=== PATIENT | female | born 1930 | race Caucasian/White ===

== ENCOUNTER 2016-10-28 16:52 | Emergency (ER) | payer OTHER ==
[~2016-10-28 16:52] MED LIST: APIX2.5 PO; ATOR10 PO; CART240C4 PO; GLUCTAB OR; LEVO.025 PO; LOSA25TA31 PO; POTA20PA PO; TYLE500T PO
[2016-10-28 17:20] VITALS: BP 214/96; PULSE 101; RESP 16; TEMP 98.2; O2SAT 97
--- NOTE | 2016-10-28 17:53 | PD ---
HPI Chief Complaint: Altered Mental Status Time Seen by Provider: 17:47 Travel History International Travel<30 days: No Contact w/Intl Traveler<30days: No History of Present Illness HPI Send 86 year-old woman, lives in apparently independent living, is always pleasantly confused, was found on the ground by her daughter. She may have been there since last night. History Past Medical History Narrative Medical Hypertension Diabetes A. fib Dyslipidemia GERD PNEUMOCCOCAL Vaccine (Year): 2009 Social History Alcohol Use: No Tobacco Use: No Allergies-Medications (Allergen,Severity, Reaction): Coded Allergies: morphine (Unverified Allergy, Severe, 09/30/16) SOB, SWELLING penicillin G (Unverified Allergy, Severe, 09/30/16) NAUSEA/VOMITING Reported Meds & Prescriptions Reported Meds & Active Scripts Active Cozaar (Losartan Potassium) 25 Mg Tab 25 Mg PO DAILY 30 Days Lipitor 10 mg tab (Atorvastatin) 10 Mg Tab 10 Mg PO HS 30 Days Eliquis (Apixaban) 2.5 Mg Tab 2.5 Mg PO BID Reported Levothyroxine 25 mcg (Levothyroxine Sodium) 25 Mcg Tab 25 Mcg PO DAILY Cartia XT 240 mg (DILTIAZEM XT 240 mg (Cartia)) 240 Mg/24 Hr Cap 240 Mg PO DAILY Tylenol (Acetaminophen) 500 Mg Tab 1,000 Mg PO Q6HPRN Klor-Con (Potassium Chloride) 20 Meq Pow 20 Meq PO DAILY Metformin Hcl (Metformin HCl) 500 Mg Tab 500 Mg OR DAILY Review of Systems Except as stated in HPI: all other systems reviewed are Neg Physical Exam Narrative GENERAL: 86 year-old woman, nontoxic, pleasantly confused. SKIN: Focused skin assessment warm/dry. HEAD: Atraumatic. Normocephalic. EYES: Pupils equal and round. No scleral icterus. No injection or drainage. ENT: No nasal bleeding or discharge. Mucous membranes pink and moist. NECK: Trachea midline. No JVD. CARDIOVASCULAR: Regular rate and rhythm. No murmur appreciated. RESPIRATORY: No accessory muscle use. Clear to auscultation. Breath sounds equal bilaterally. GASTROINTESTINAL: Abdomen soft, non-tender, nondistended. Hepatic and splenic margins not palpable. MUSCULOSKELETAL: No obvious deformities. No clubbing. No cyanosis. No edema. She's got very slight bruising on her left hand. There is no tenderness at all. No evidence of bony injury. NEUROLOGICAL: Awake and alert. Pleasantly confused. No obvious cranial nerve deficits. Motor grossly within normal limits. Normal speech. Data Data Last Documented VS Vital Signs Date Time Temp Pulse Resp B/P (MAP) Pulse Ox O2 Delivery O2 Flow Rate FiO2 10/28/16 17:20 98.2 101 16 214/96 (135) 97 Orders Orders Complete Blood Count With Diff (10/28/16 17:47) Comprehensive Metabolic Panel (10/28/16 17:47) Urinalysis - C+S If Indicated (10/28/16 17:47) Creatine Kinase (Cpk) (10/28/16 17:53) Ct Brain W/O Iv Contrast(Rout) (10/28/16 ) Labs Laboratory Tests Test 10/28/16 18:03 White Blood Count 10.5 TH/MM3 Red Blood Count 4.15 MIL/MM3 Hemoglobin 12.1 GM/DL Hematocrit 35.6 % Mean Corpuscular Volume 85.9 FL Mean Corpuscular Hemoglobin 29.1 PG Mean Corpuscular Hemoglobin Concent 33.9 % Red Cell Distribution Width 15.6 % Platelet Count 246 TH/MM3 Mean Platelet Volume 9.6 FL Neutrophils (%) (Auto) 79.7 % Lymphocytes (%) (Auto) 14.0 % Monocytes (%) (Auto) 5.0 % Eosinophils (%) (Auto) 0.7 % Basophils (%) (Auto) 0.6 % Neutrophils # (Auto) 8.4 TH/MM3 Lymphocytes # (Auto) 1.5 TH/MM3 Monocytes # (Auto) 0.5 TH/MM3 Eosinophils # (Auto) 0.1 TH/MM3 Basophils # (Auto) 0.1 TH/MM3 CBC Comment DIFF FINAL Differential Comment MDM Medical Decision Making Medical Screen Exam Complete: Yes Emergency Medical Condition: Yes Differential Diagnosis UTI, fall, confusion, other Narrative Course Medical decision making INITIAL: 86-year-old with a fall, confusion. Appears to be at baseline. We'll check urine, CT head. Probable UTI. Likely discharge. 6:05 PM: Attempted to call patient's next of kin, Jane Moon, . I left a message. Patient seen in the ambulance hallway. Patient be transferred to a medical bed for repeat evaluation and disposition. Roddy Yeh MD Oct 28, 2016 17:53
[2016-10-28 18:33] LABS: AUTOMATED NEUTROPHIL # 8.4 TH/MM3 (1.8-7.7); BASOPHIL # 0.1 TH/MM3 (0-0.2); BASOPHIL % 0.6 % (0.0-2.0); EOSINOPHIL # 0.1 TH/MM3 (0-0.4); EOSINOPHIL % 0.7 % (0.0-4.0); HEMATOCRIT 35.6 % (35.0-46.0); HEMO FLAGS DIFF FINAL; LYMPHOCYTE # 1.5 TH/MM3 (1.0-4.8); MEAN CELL VOLUME 85.9 FL (80.0-100.0); MEAN CORPUSCULAR HEMOGLOBIN 29.1 PG (27.0-34.0); MEAN CORPUSCULAR HGB CONC 33.9 % (32.0-36.0); NEUT % 79.7 % (16.0-70.0); PLATELET COUNT 246 TH/MM3 (150-450); RED BLOOD COUNT 4.15 MIL/MM3 (4.00-5.30); RED CELL DISTRIBUTION WIDTH 15.6 % (11.6-17.2); WHITE BLOOD COUNT 10.5 TH/MM3 (4.0-11.0)
[2016-10-28 19:04] LABS: ANION GAP 11 MEQ/L (5-15); AST (GOT) 21 U/L (15-37); BICARBONATE 24.4 MEQ/L (21.0-32.0); BLOOD UREA NITROGEN 24 MG/DL (7-18); CHLORIDE 106 MEQ/L (98-107); GLOMERULAR FILTRATION RATE 69 ML/MIN (>89); POTASSIUM 3.4 MEQ/L (3.5-5.1); SODIUM (NA) 141 MEQ/L (136-145)
[2016-10-28 19:14] LABS: ALKALINE PHOSPHATASE 136 U/L (45-117); ALT (GPT) 19 U/L (10-53); CREATINE KINASE 122 U/L (26-192); TOTAL BILIRUBIN ADULT 0.4 MG/DL (0.2-1.0)
[2016-10-28 19:18] LABS: BACTERIA, URINE RARE /hpf; BLOOD, URINE SMALL (NEG); COMMENT (UR) CULT NOT INDICATED; CULTURE IF INDICATED CULT NOT INDICATED; GLUCOSE,URINE NEG (NEG); KETONE, URINE 10 mg/dL (NEG); MUCUS URINE FEW /lpf (OCC); NITRITE,URINE NEG (NEG); PH, URINE 7.5 (5.0-8.5); SQUAMOUS EPITHELIAL CELL URINE 1 /hpf (0-5); URINE COLOR LIGHT-YELLOW (YELLW/STRAW)
--- NOTE | 2016-10-28 19:30 | PD ---
Data Data Last Documented VS Vital Signs Date Time Temp Pulse Resp B/P (MAP) Pulse Ox O2 Delivery O2 Flow Rate FiO2 10/28/16 19:15 95 10/28/16 17:20 98.2 101 16 214/96 (135) Orders Orders Complete Blood Count With Diff (10/28/16 17:47) Comprehensive Metabolic Panel (10/28/16 17:47) Urinalysis - C+S If Indicated (10/28/16 17:47) Ct Brain W/O Iv Contrast(Rout) (10/28/16 ) Creatine Kinase (Cpk) (10/28/16 17:47) Nitrofurantoin Monohyd Macrocr (Macrobid (10/28/16 20:45) Labs Laboratory Tests Test 10/28/16 18:03 10/28/16 18:50 White Blood Count 10.5 TH/MM3 Red Blood Count 4.15 MIL/MM3 Hemoglobin 12.1 GM/DL Hematocrit 35.6 % Mean Corpuscular Volume 85.9 FL Mean Corpuscular Hemoglobin 29.1 PG Mean Corpuscular Hemoglobin Concent 33.9 % Red Cell Distribution Width 15.6 % Platelet Count 246 TH/MM3 Mean Platelet Volume 9.6 FL Neutrophils (%) (Auto) 79.7 % Lymphocytes (%) (Auto) 14.0 % Monocytes (%) (Auto) 5.0 % Eosinophils (%) (Auto) 0.7 % Basophils (%) (Auto) 0.6 % Neutrophils # (Auto) 8.4 TH/MM3 Lymphocytes # (Auto) 1.5 TH/MM3 Monocytes # (Auto) 0.5 TH/MM3 Eosinophils # (Auto) 0.1 TH/MM3 Basophils # (Auto) 0.1 TH/MM3 CBC Comment DIFF FINAL Differential Comment Blood Urea Nitrogen 24 MG/DL Creatinine 0.79 MG/DL Random Glucose 110 MG/DL Total Protein 7.0 GM/DL Albumin 3.5 GM/DL Calcium Level 8.2 MG/DL Alkaline Phosphatase 136 U/L Aspartate Amino Transf (AST/SGOT) 21 U/L Alanine Aminotransferase (ALT/SGPT) 19 U/L Total Bilirubin 0.4 MG/DL Sodium Level 141 MEQ/L Potassium Level 3.4 MEQ/L Chloride Level 106 MEQ/L Carbon Dioxide Level 24.4 MEQ/L Anion Gap 11 MEQ/L Estimat Glomerular Filtration Rate 69 ML/MIN Total Creatine Kinase 122 U/L Urine Color LIGHT-YELLOW Urine Turbidity HAZY Urine pH 7.5 Urine Specific [place] 1.012 Urine Protein 30 mg/dL Urine Glucose (UA) NEG mg/dL Urine Ketones 10 mg/dL Urine Occult Blood SMALL Urine Nitrite NEG Urine Bilirubin NEG Urine Urobilinogen LESS THAN 2.0 MG/DL Urine Leukocyte Esterase LARGE Urine RBC 10 /hpf Urine WBC 6 /hpf Urine Squamous Epithelial Cells 1 /hpf Urine Amorphous Sediment RARE Urine Bacteria RARE /hpf Urine Mucus FEW /lpf Microscopic Urinalysis Comment CULT NOT INDICATED MDM Medical Record Reviewed: Yes Supervised Visit with WILFREDO: No Interpretation(s) Last Impressions Head CT 10/28/16 0000 Signed Impressions: Service Date/Time: Friday, October 28, 2016 19:36 - CONCLUSION: No acute intracranial abnormality. 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 Solis Agarwal MD Narrative Course During the course of the patients emergency department visit, the patients history, examination, and differential diagnosis were reviewed with the patient. The patient had IV access obtained and blood work sent for analysis. The patient was placed on a panel monitor with oximetry and blood pressure monitoring. The patient's case was checked out to me by at the conclusion of his shift. He requested that I review the patient's CT scan of the brain. He anticipated that the patient would be able to be discharged back home. According to the patient's family at the patient's bedside the patient has a history of dementia and lives in an apartment alone. The patient also has a history of chronic urinary incontinence. They report that the patient has refused placement and any type of skilled facility. They report that she has difficulty remembering to take her medications regularly. According to them , she has not taken her medications at all today. The patients laboratory studies were reviewed and remarkable for a white count of 10.5, hemoglobin 12.1, platelets 246 with 79.7 neutrophils, CMP is remarkable for potassium of 3.4, BUN 24, glucose 110, calcium 8.2, alkaline phosphatase 136, urinalysis shows hazy urine, protein 30, 10 ketones, small occult blood, large leukocyte esterase, 10 rbc's, 6 wbc's, rare bacteria. Radiology studies were reviewed and remarkable for a CT scan of the brain shows no acute intracranial abnormality, old left frontal temporal lobe infarct. The patient's family has brought in the patient's medication and are requesting to administer the medication. The patient does have a history of atrial fibrillation and hypertension. The patient reportedly has not remembered to take her medicines for the last 2 days. The patient's family will administer a dose of her Eliquis, diltiazem, and losartan. Additionally the patient was given her first dose of Macrobid for a UTI. The patient will be discharged home with a prescription for Macrobid. The patient's family is concerned about the patient being at home alone. They report that they will stay with the patient tonight. I recommended that they follow up closely with the patient's primary care physician to discuss placement in an assisted living facility for further assistance. The patient's family was agreeable with this plan. The patient is resting comfortably and feels better, is alert and in no distress. The patients results and examination findings were discussed with the patient. The repeat examination is unremarkable and benign. The history, exam, diagnostic testing, and current condition do not suggest any significant pathology to warrant further testing, continued ED treatment, admission, or surgical evaluation at this point. The vital signs have been stable. The patient does not have uncontrollable pain, intractable vomiting, or other significant symptoms. The patient's condition is stable and appropriate for discharge. The patient will pursue further outpatient evaluation with a primary care physician or other designated or consulting physician as indicated in the discharge instructions. The patient expressed understanding and was agreeable with this plan. Diagnosis Primary Impression: Fall Qualified Codes: W19.XXXA - Unspecified fall, initial encounter Additional Impression: Urinary tract infection Qualified Codes: N39.0 - Urinary tract infection, site not specified Referrals: Primary Care Physician 1 day Patient Instructions: Fall Prevention for Older Adults (ED), General Instructions, Urinary Tract Infection in Women (ED) Med/Other Pt SpecificInfo: Prescription(s) given Scripts Nitrofurantoin Monohydrate Macrocrystals (Macrobid) 100 Mg Cap 100 MG PO BID for Infection, #19 CAP 0 Refills Prov: Janiya Lemon MD 10/28/16 Disposition: 01 DISCHARGE HOME Condition: Stable Janiya Lemon MD Oct 28, 2016 19:30
[2016-10-28] MEDS ORDERED: LOSA100T PO (19:36)
[2016-10-28] MEDS ORDERED: DILT1TAB4 PO (19:36)
[2016-10-28] MEDS ORDERED: LEVO25TA4 PO (19:36)
[2016-10-28] MEDS ORDERED: METF500T PO (19:36)
[2016-10-28] MEDS ORDERED: APIX2.5T PO (19:36)
[2016-10-28] MEDS ORDERED: ATOR20TA15 PO (19:36)
--- NOTE | 2016-10-28 20:03 | RADRPT ---
EXAM DATE/TIME: 10/28/2016 19:36 [facility] COMPARISON: MRI BRAIN W/O CONTRAST, August 24, 2014, 8:15. CT BRAIN W/O CONTRAST, August 23, 2014, 22:46. INDICATIONS : Altered mental status with confusion. RADIATION DOSE: 56.77 CTDIvol (mGy) MEDICAL HISTORY : Hypertension. AFIB SURGICAL HISTORY : Hysterectomy. ENCOUNTER: Initial ACUITY: 1 day PAIN SCALE: 2/10 LOCATION: Bilateral cranial TECHNIQUE: Multiple contiguous axial images were obtained of the head. Using automated exposure control and adj ustment of the mA and/or kV according to patient size, radiation dose was kept as low as reasonably a chievable to obtain optimal diagnostic quality images. DICOM format image data is available electro nically for review and comparison. FINDINGS: CEREBRUM: The ventricles are normal for age. No evidence of midline shift, mass lesion, hemorrhage or acute in farction. No extra-axial fluid collections are seen. Old left frontal and temporal lobe infarct agai n noted. POSTERIOR FOSSA: The cerebellum and brainstem are intact. The 4th ventricle is midline. The cerebellopontine angle i s unremarkable. EXTRACRANIAL: The visualized portion of the orbits is intact. SKULL: The calvaria is intact. No evidence of skull fracture. CONCLUSION: No acute intracranial abnormality. 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 Solis Agarwal MD on October 28, 2016 at 20:00 Board Certified Radiologist. This report was verified electronically.
[2016-10-28] MEDS ORDERED: MACR100C2 PO (20:38)
[2016-10-28] MEDS ORDERED: NITROFURANTOIN MONOHYD MACROCR 100 MG CAP PO ONE (20:45)
== END 2016-10-28 21:30 | disposition home or self-care (01) ==
LOC: NEPC 16:52
DX: Z04.3 Encounter for examination and observation following other accident (principal); W19.XXXA Unspecified fall, initial encounter; N39.0 Urinary tract infection, site not specified; F03.90 Unspecified dementia, unspecified severity, without behavioral disturbance, psychotic disturbance, mood disturbance, and anxiety; I48.91 Unspecified atrial fibrillation; Z79.01 Long term (current) use of anticoagulants; I10 Essential (primary) hypertension; E11.9 Type 2 diabetes mellitus without complications
CPT/HCPCS: 70450; 80053; 81001; 82550; 85025